=== PATIENT | female | born 1960 | race Caucasian/White ===

== ENCOUNTER 2016-09-08 00:01 | Inpatient (IN) | payer BC, MEDICAID ==
--- NOTE | ~2016-09-08 | EKG ---
PATIENT: VIVIANA JETER UNIT #: [id number] Ventricular Rate: 116 BPM Atrial Rate: 116 BPM P-R Interval: 140 ms QRS Duration: 74 ms Q-T Interval: 344 ms QTC Calculation(Bezet): 478 ms P [place]: 74 degrees Calculated R [place]: 72 degrees Calculated T [place]: 79 degrees Diagnosis Line: Sinus tachycardia Diagnosis Line: Otherwise normal ECG Diagnosis Line: When compared with ECG of 27-JAN-2015 07:09, Diagnosis Line: No significant change was found Diagnosis Line: Confirmed by ASIM CABRERA MD ([id number]) on 09/08/2016 Diagnosis Line: 8:31:49 PM INTERPRETING MD: DEBORAH REDD
--- NOTE | ~2016-09-08 | HP ---
Unit #: [id number] #: [id number] Patient: VIVIANA JETER [id number] [address] [place], [place] [address] [id number] MR#: [id number] NAME: VIVIANA JETER ROOM: Age: 55 Sex: F Admission Date: 09/08/2016 : 1960 Attending Physician: Caden Sutherland M.D. Primary Care Physician: No Primary Care Physician HISTORY AND PHYSICAL CHIEF COMPLAINT Altered mental status, hypoglycemia, refusal to eat, alcohol abuse with early withdrawal. HISTORY OF PRESENT ILLNESS This 55-year-old female with history of alcohol abuse and paroxysmal atrial fibrillation is admitted for hypoglycemia and refusal to eat. Unfortunately, the left the emergency department and is not yet home, although I tried to call his landline. The patient was brought to this emergency department early this morning for altered mental status. I am told that her initial Accu-Chek was 20. She was placed on D5 half with improvement of her hypoglycemia. Her told the ER physician that she drinks alcohol but does not eat food. In the ER, she was started on D5 half normal saline at 150 mL/hour with improvement of her hypoglycemia, given a rally pack and Zofran. She was given a food tray but has refused to eat. She is awake and alert. She will nod and shake her head to questions but will not speak to me. Apparently, she is unhappy with her for bringing her here. In the ER, however, she has become more tachycardiac and is thought to be in alcohol withdrawal. Her initial alcohol level was 126. Again, my database is poor as the left, the patient will only nod and shake her head to answers. PAST MEDICAL HISTORY 1. Admission 01/2015 for alcohol abuse, aspiration pneumonia and AFib with RVR. 2. Arthritis. 3. Anxiety and depression. 4. Neuropathy. 5. x3. 6. BTL. 7. Foot surgery. SOCIAL HISTORY The patient lives with her , smokes tobacco, drinks an unknown amount of alcohol. FAMILY HISTORY Hypertension. ALLERGIES Indocin and tetracycline. HOME MEDICATIONS Unit #: [id number] #: [id number] Patient: VIVIANA JETER Neurontin unknown dose. REVIEW OF SYSTEMS Impossible to obtain as the patient refuses to answer questions. PHYSICAL EXAMINATION GENERAL APPEARANCE: A 55-year-old cachetic female currently in no acute distress. VITAL SIGNS: Temperature 98.8. Pulse 131. Respirations 21. Blood pressure 143/105. O2 saturation 99% on room air. HEENT: Eyes: PERRLA. Extraocular muscles are intact. Pharynx is benign. NECK: Supple without adenopathy or thyromegaly. CHEST: Clear. CARDIAC: Tachy S1, S2 without murmur. ABDOMEN: Bowel sounds are present. No hepatosplenomegaly, tenderness or masses. EXTREMITIES: Without clubbing, cyanosis or edema. NEUROLOGIC: The patient is awake, alert. She nods and shakes her head appropriately but will not answer questions. She has equal strength throughout but is weak on exam. Poor effort on exam. DIAGNOSTIC STUDIES LABORATORY: Hematocrit 55, MCV 109.5, WBC count 10.4, platelet count 150. Cardiac markers are negative. Glucose 196 on D5 half at 150 mL/hour. AST 277, ALT 80, alkaline phosphatase 161. Alcohol level 126. Urinalysis positive for glucose only. IMAGING: Chest x-ray negative. CARDIOVASCULAR: EKG: Sinus tachycardia, rate 116. ASSESSMENT 1. Hypoglycemia. Apparently, the patient drinks alcohol and is not eating. She is cachetic. She presents with altered mental status which is now improved. 2. Alcohol abuse now with possible withdrawal. The patient is somewhat tachycardiac. 3. History of paroxysmal atrial fibrillation. 4. 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 5. Cachexia. 6. Tobacco abuse. 7. Metabolic acidosis secondary to alcohol and starvation ketosis. 8. Poor database. The patient will nod her head yes and shake her head no but is unhappy and will not answer questions. Her left. 9. Elevated MCV which may be related to alcohol. PLAN 1. Vitamins and benzodiazepines. 2. H2 blockers and Zofran. 3. Better history when returns. 4. Obtain TSH, hepatitis profile, B12, folic acid level, urine tox screen, ammonia level. 5. Check hemoglobin A1C and monitor Accu-Cheks. 6. May need Psychiatry to see if the patient refuses to eat. We will keep on IV fluids with dextrose for now. Dictated by Unit #: [id number] #: [id number] Patient: VIVIANA JETER M.D. AML/joe TD: 09/08/2016 06:06 JOB #: [id number] HISTORY AND PHYSICAL Page 1 of 1 X Soraida Wen MD HISTORY AND PHYSICAL
--- NOTE | ~2016-09-08 | CR72 ---
[facility] A Service of [facility] RADIOLOGY TEXT RESULTS PATIENT: VVIIANA JETER LOCATION: [facility] : 64 UNIT #: [id number] AGE: [address]: Stephanie Borges MD SEX: F ORDER DR: [id number] [place], [place] [address] [id number] E MR#: [id number] Acc #: [id number] NAME: VIVIANA JETER : 1960 SEX: F STUDY DATE/TIME: 09/08/2016 1:15 UNIT: JARVIS ROOM: STUDY DESCRIPTION: CR Chest Single View Portable Attending Physician: Caden Sutherland M.D. Ordering Physician: Senthil Pagan M.D. Primary Care Physician: Primary Care Physician No MEDICAL IMAGING REPORT This report is preliminary unless electronic signature is present EXAM Portable chest INDICATION Shortness of air. Hypoglycemia today. PROCEDURE Frontal view chest. COMPARISON 01/27/2015 FINDINGS Heart size is normal. No dense consolidation, pleural fluid or pneumothorax. IMPRESSION No active process. Dictated by... Nimesh Dunbar M.D. THIS IS AN ELECTRONICALLY VERIFIED REPORT Nimesh Dunbar M.D. at 09/08/2016 10:27 PM EED/ljd TD: 09/08/2016 02:53 JOB #: [id number] MEDICAL IMAGING REPORT [facility] A Service of [facility] RADIOLOGY TEXT RESULTS PATIENT: VIVIANA JETER LOCATION: : 64 UNIT #: [id number] AGE: [address]: Stephanie Borges MD SEX: F ORDER DR: Page 1 of 1 COPY
--- NOTE | ~2016-09-08 | DS ---
Unit #: [id number] #: [id number] Patient: VIVIANA JETER [id number] [address] [address] [id number] I MR#: [id number] NAME: VIVIANA JETER ROOM: 218 Age: 55 Sex: F Admission Date: 09/08/2016 : 1960 Discharge Date: 09/14/2016 Attending Physician: Stephanie Borges M.D. Primary Care Physician: Kelsie Primary Care Physician DISCHARGE SUMMARY ADDENDUM Please see previous discharge summary dictated from September 11, 2016 for details of initial part of hospital stay. Afterwards upon [facility] to [facility], [facility] stated that the patient was not appropriate for their care. Therefore, they were unwilling to accept and patient was kept here in the hospital on med/surg floor. Subsequently, Cymbalta as well as Remeron were initiated. Her CIWA protocol was discontinued. P.o. medications were administrated on a p.r.n. basis. Patient has been since tolerating diet well, has been ambulatory with physical therapy and has been cleared from their service for discharge home. She has been extensively counseled and [facility], and from a medical standpoint, she is clinically stable for discharge. Overall, patient's long-term prognosis is guarded secondary to her ongoing alcohol abuse. FINAL DISCHARGE DIAGNOSES Please see above. FINAL DISCHARGE MEDICATIONS 1. Cymbalta 30 mg p.o. daily. 2. Remeron 15 mg p.o. nightly. 3. Lopressor 25 mg p.o. b.i.d. 4. Pepcid 20 mg p.o. b.i.d. 5. Synthroid 50 mcg p.o. daily. DISCHARGE CONDITION Stable. DISCHARGE DISPOSITION Home. Dictated by... Stephanie Borges M.D. Unit #: [id number] #: [id number] Patient: VIVIANA JETER ISN/aury TD: 09/15/2016 09:12 JOB #: [id number] DISCHARGE SUMMARY Page 1 of 1 X Stephanie Borges MD DISCHARGE SUMMARY
--- NOTE | ~2016-09-08 | FU ---
[facility] Nutrition Therapy DATE: 09/12/16 Patient: VIVIANA JETER Physician: LASHELL Address: [address] Room/Bed: [address] [place] [address], Zip: [place] [address] Admit Date: 09/08/16 Date of : [birth year] Height: 5 9 Weight: 112 51 NUTRITION MONITORING/FOLLOW-UP: Reason: Nutrition follow up and consult RE: See pt in the AM 09/12 Anthropometrics: Ht: 5'9" Adm wt: 50 kg BMI: 16.5 Wt 09/12: 51 kg Labs: Creat 0.5 Alb 3.2 Accuchecks 133 Meds: Remeron, thiamine HCl, synthroid, zofran, pepcid, lopressor I&O's: 840/8, last BM 09/11 Skin: Bruising BUE Intact abrasion RFA Edema: none noted Estimated Nutrition Needs: 1631-2513 kcals (30-35 kcals/kg) 50-65 grams protein (1.0-1.3 grams/kg) Diet: Regular Assessment: Chart reviewed, events noted. RD was consulted to see the pt this AM. Please note, RD is following this patient for low BMI. Please refer to initial assessment from 09/10/16. RD attempted to see the pt this AM, and she was being transfered to . Per RN report and information in the chart, the pt was refusing to eat, and MD wrote to place DHT if the pt continued to refuse to eat. MD wrote order today to cancel DHT for now, as the pt seems to be eating. RD spoke with the pt this afternoon at bedside. Pt reports that she was eating and drinking her Ensure shakes yesterday, however, she said she has not had anything to eat today. Pt seemed unsure about her nutritional intake, and would not provide any details about her intake to RD. RD stressed the importance of adequate nutritional intake, and the pt did agree to drinking her Ensure supplements. RD provided explanation of how to order food and pt nodded her head in understanding. RN reports that the pt consumed ~50% of her breakfast this morning. Nutrition diagnosis remains with updated evidence. Dx: Inadequate nutrient intake RT current condition, AMS AEB pt refusing to eat- IN PROGRESS/ RESOLVING New Dx: Inadequate nutrient intake RT AMS AEB pt previously refusing to eat, 50% intake of [facility] Nutrition Therapy DATE: 09/12/16 Patient: VIVIANA JETER Physician: LASHELL Address: [address] Room/Bed: [address] [place] [address], Zip: [place] [address] Admit Date: 09/08/16 Date of : [birth year] Height: 5 9 Weight: 112 51 breakfast today. Intervention: 1. Regular diet 2. Ensure QID Monitoring, Evaluation and Goals: 1. Oral intake; >50% of meals- NOT MET/ IN PROGRESS 2. Prevent ena/ macro nutrient deficiencies- IN PROGRESS 3. Weight; prevent weight loss, promote gradual weight gain- IN PROGRESS NEW GOALS (IN ADDITION TO ABOVE): 1. Labs; monitor blood glucose levels Recommendations: 1. Continue regular diet as tolerated. 2. Encourage adequate PO intake and assist patient with ordering meals as needed. 3. Continue Ensure (strawberry) QID. 4. If pt refuses PO intake, consider placing a DHT and starting enteral nutrition with Jevity 1.5 @ 20 mL/hr. Increase by 10 mL q 8 hrs as tolerated to goal of 45 mL/hr. This would provide: 1620 kcals/ 69 grams protein/ 821 mL free H20 Status: Pt is at moderate nutritional risk. RD will continue to follow. Respectfully, ANNIKA AGUILAR RD, LD Food and Nutritional Services [facility] cc: client file
--- NOTE | ~2016-09-08 | A ---
[facility] Nutrition Therapy DATE: 09/10/16 Patient: VIVIANA JETER Physician: LASHELL Address: [address] Room/Bed: [address] [place] [address], Zip: [place] [address] Admit Date: 09/08/16 Date of : [birth year] Height: 5 9 Weight: 112 51 NUTRITIONAL ASSESSMENT: REASON: LOW BMI (16.5), CONSULT PATIENT ADMITTED FOR HYPOGLYCEMIA, AMS, ETOH ABUSE WITH WITHDRAWAL, REFUSAL TO EAT, METABOLIC ACIDOSIS PMH: ARTHRITIS, ANXIETY, DEPRESSION, A-FIB, NEUROPATHY Anthropometrics: HT: 69", WT: 110#, BMI: 16.5 Labs: 09/10/16- K: 3.3, GLU: 96, CREA: 0.3, CA: 8.0, AST: 161, ALT: 63, HGBA1C: 4.7 Meds: MVI +MINERALS, DETOX PROTOCOL, SYNTHROID, NACL I/O & Bowel function: 1000/7, LBM 09/06/16 Skin Integrity: INTACT, NO EDEMA NOTED Estimated Nutrition Needs: INCREASED 2' REFUSAL TO EAT, LOW BMI Assessment: PATIENT IS A 55 Y/O FEMALE ADMITTED FOR HYPOGLYCEMIA, AMS, ETOH ABUSE WITH WITHDRAWAL, REFUSAL TO EAT, AND METABOLIC ACIDOSIS. PATIENT CURRENTLY LIVES WITH HER . SHE IS A DAILY SMOKER, DRINKS ETOH DAILY AND HAS A HX OF ILLICIT SUBSTANCE ABUSE. THE PATIENT HAS CONFUSION NOTED AT TIMES, BUT SHE WILL REFUSE TO ANSWER QUESTIONS FREQUENTLY. PATIENT WILL NOD AND SHAKE HER HEAD TO YES/NO QUESTIONS. PATIENT CURRENTLY HAS AN OLOP EVALUATION ORDERED AND NURSING REPORTED SHE HAS A HX OF CHEMICAL DEPENDENCY TREATMENT. PATIENT IS STILL REFUSING TO CONSUME ANYTHING BY MOUTH. DURING VISIT, THE PATIENT WOULD ONLY NOD TO YES/NO QUESTIONS BUT WAS WILLING TO HAVE ENSURE SENT ON HER TRAY. PATIENT'S WAS AT BEDSIDE BUT HE WAS UNABLE TO ANSWER ANY QUESTIONS RELATING TO PATIENT'S WEIGHT. Dx: INADEQUATE NUTRIENT INTAKE R/T CURRENT CONDITION, AMS AEB REFUSAL TO EAT Intervention: REGULAR DIET, SUPPLEMENTS, MEDS/FLUIDS PER MD, OLOP EVALUATION Monitoring, Evaluation and Goals: 1. ADEQUATE PO INTAKES >50% 0F MEALS 2. PREVENT, CORRECT MICRO/MACRO NUTRIENT DEFICIENCIES 3. WEIGHT; PROMOTE A STEADY WEIGHT GAIN TOWARDS A HEALTHY BMI OF 19-25, PREVENT FURTHER WEIGHT LOSS [facility] Nutrition Therapy DATE: 09/10/16 Patient: VIVIANA JETER Physician: LASHELL Address: [address] Room/Bed: [address] [place] [address], Zip: [place] [address] Admit Date: 09/08/16 Date of : [birth year] Height: 5 9 Weight: 112 51 MONITOR: LABS, WEIGHT, I/Os Recommendations: 1. CONTINUE REGULAR DIET TOLERATED. SEND ENSURE TID WITH MEALS TO PROMOTE ADEQUATE KCAL AND PROTEIN INTAKES 2. ENCOURAGE ADEQUATE PO AND FLUID INTAKES 3. RECOMMEND POSSIBLY ADDING AN APPETITE STIMULANT TO PATIENT'S CURRENT MEDICATION REGIMEN D/T PATIENT'S REFUSAL TO EAT 4. CONSULT RD FURTHER IF ENTERAL NUTRITION RECOMMENDATIONS ARE NECESSARY RD TO F/U PER PROTOCOL AND PRN R/T PATIENT SEVERELY COMPROMISED Respectfully, TAYLOR GONZALES, RD, LD Food and Nutritional Services [facility] cc: client file
--- NOTE | ~2016-09-08 | CO ---
Unit #: [id number] #: [id number] Patient: VIVIANA JETER [id number] [address] [place], [place] [address] [id number] I MR#: [id number] NAME: VIVIANA JETER. ROOM: 325 Age: 55 Sex: F Admission Date: 09/08/2016 : 1960 Attending Physician: Stephanie Borges M.D. Consultation Date: 09/08/2016 CONSULTATION REPORT REASON FOR CONSULTATION Hypoglycemia and abnormal thyroid function test. HISTORY OF PRESENT ILLNESS This is a 55-year-old female with history of the alcohol abuse and paroxysmal atrial fibrillation, who has been admitted for the change in mental status and refusal to eat. She has a history of heavy alcohol use. In the ER, she was found to be hypoglycemic with Accu-Chek was in 20s, treated at the ER and started on IV fluids with D5 half-normal saline. On her labs, she was found to have the abnormal thyroid function test with low TSH and free T4 was low. I have been asked to see the patient for further management. REVIEW OF SYSTEMS Unable to obtain anything from the patient. She is unable to give any. REVIEW OF SYSTEMS See HPI. PAST MEDICAL HISTORY See HPI. SOCIAL HISTORY Lives with her . Smokes tobacco and drinks unknown amount of alcohol. History of previous admissions with alcohol abuse. FAMILY HISTORY Not pertinent. ALLERGIES Tetracycline and indomethacin. HOME MEDICATIONS Unknown. PHYSICAL EXAMINATION GENERAL: She is looking comfortable, in no acute respiratory distress. VITAL SIGNS: Temperature is 100, pulse is 111, blood pressure 139/90. HEENT: EOMI. Pupils are equally reactive to light. NECK: Supple. No thyromegaly noted. CHEST: Good air entry. CVS: Regular rhythm. ABDOMEN: Soft and nontender. Bowel sounds positive. EXTREMITIES: No edema. Ulcers noted. Unit #: [id number] #: [id number] Patient: VIVIANA JETER DIAGNOSTIC STUDIES LABORATORY RESULTS: On her labs; CO2 is 18, sodium 137, potassium 4.6, chloride 107, magnesium is low 1.6. TSH is 0.25. Free T4 is 0.44. Lactic acid 3.9. ASSESSMENT 1. Hypoglycemia, which could be combination of either due to the adrenal insufficiency or hypopituitarism. 2. Heavy alcohol abuse. 3. Hypoglycemia. 4. Abnormal thyroid function test with low TSH and low free T4 indicating central hypothyroidism cannot exclude euthyroid sick syndrome. PLAN We will check the ACTH stimulation test. Start dexamethasone 2 mg IV with a one dose now. Check ACTH stimulation test and start levothyroxine 50 mcg tomorrow morning. Continue to follow the patient for further management. Dictated by... Amaya Vizcaino/francisco j TD: 09/09/2016 00:39 JOB #: [id number] CONSULTATION REPORT Page 1 of 1 X Ev Jon MD X CONSULTATION REPORT
--- NOTE | ~2016-09-08 | DS ---
Unit #: [id number] #: [id number] Patient: VIVIANA JETER [id number] [address] [place], [place] [address] [id number] I MR#: [id number] NAME: VIVIANA JETER ROOM: 218 Age: 55 Sex: F Admission Date: 09/08/2016 : 1960 Discharge Date: 09/11/2016 Attending Physician: Stephanie Borges M.D. Primary Care Physician: No Primary Care Physician DISCHARGE SUMMARY REASON FOR ADMISSION Altered mental status, hypoglycemia, patient refusing to eat, alcohol abuse. HISTORY OF PRESENT ILLNESS/HOSPITAL COURSE The patient is a 55-year-old female well known to our service with a longstanding history of alcohol abuse, prior medical conditions including atrial fibrillation, who was admitted secondary to refusal to eat as well as persistent hypoglycemia. Please refer to H and P for complete details. The patient was subsequently placed on telemetry floor. CIWA protocol was initiated. Patient at peak score scored a 6 and received Ativan IV x1. Otherwise, she had no overt evidence of any DTs. She was placed initially on scheduled Librium which was transitioned into p.r.n. Librium. Appropriate laboratory studies were conducted including an ammonia level which came back normal. Urine tox screen was negative. Patient's hemoglobin A1c was noted to be 4.7%. HIV screening was done that was negative. Patient did have hypokalemia which was appropriately repleted. Today at time of discharge, her potassium level is 3.1 and will be repleted prior to discharge. She does have a prior history of questionable Cortisol and/or adrenal insufficiency and we had placed a consultation to Dr. Jon who felt as though it was not likely to be adrenal insufficiency but he did question if patient had possible euthyroid sick syndrome. Appropriate laboratory studies per his service were ordered. They are currently pending an ACTH stem test as well as Cortisol and T4 level. This can be followed as an outpatient. Patient currently is medically stable. [facility] will [facility] asked [facility] evaluate the patient secondary to her refusal to eat as well as underlying and likely major depressive disorder and ongoing alcohol abuse. FINAL DISCHARGE DIAGNOSES 1. Alcohol abuse. 2. Major depressive disorder with associated refusal to eat. 3. Paroxysmal atrial fibrillation on no chronic anticoagulation. 4. Cachexia. 5. Failure to thrive, body mass index 16. Unit #: [id number] #: [id number] Patient: VIVIANA JETER 6. Tobacco abuse. 7. Severe protein calorie malnutrition. 8. 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 Followup as an outpatient recommended. 9. Hypothyroidism. DISCHARGE MEDICATIONS 1. Librium 25 mg p.o. q.8 p.r.n. 2. Pepcid 20 mg p.o. b.i.d. 3. Synthroid 50 mcg p.o. daily. 4. Thiamine 100 mg p.o. daily. DISCHARGE CONDITION Stable. DISCHARGE DISPOSITION [facility]. Dictated by... Amaya Montelongo/aury TD: 09/13/2016 16:09 JOB #: [id number] DISCHARGE SUMMARY Page 1 of 1 X Stephanie Borges MD X DISCHARGE SUMMARY
[~2016-09-08 00:01] MED LIST: ALBUTEROL17 G1 IH; AUGMENTIN875 M1 PO; CENTRUM PO; FAMOTIDINE PO; KETOPROFEN PO; LOPRESSOR PO; LORTAB 5/500 TA1 TA2 PO; NEURONTIN600 MG PO; PHENERGAN12.5 MG PO; PREDNISONE PO; ROBAXIN500 MG PO; THERA-M CAPLET1 EAC1 PO; VIBRAMYCIN100 M1 PO; VICODIN 5/500 T1 TAB PO; VOLTAREN75 MG PO
[2016-09-08 01:01] LABS: BASOPHIL% 0.1 % (0-2.5); HEMOGLOBIN 17.8 gm/dL (12.0-16.0); LYMPHOCYTE# 0.4 X10e3 (1.0-3.5); LYMPHOCYTE% 3.5 % (17.0-45.0); MEAN CELL VOLUME 109.5 FL (83-96); MEAN CORPUSCULAR HEMOGLOBIN 35.4 PG (28-34); MEAN CORPUSCULAR HGB CONC 32.3 g/dL (30-36); MONOCYTE# 1.4 X10e3 (0-1.0); MONOCYTE% 13.5 % (3.0-12.0); NEUTROPHIL# 8.6 X10e3 (1.5-7.1); NEUTROPHIL% 82.9 % (40-75); PLATELET COUNT 150 X10e3 (140-420); RED BLOOD COUNT 5.02 X10e (3.90-5.30); RED CELL DISTRIBUTION WIDTH 13.3 % (11.0-15.5); WHITE BLOOD COUNT 10.4 X10e3 (4.0-10.5)
[2016-09-08 01:03] LABS: DIFF IND YES
[2016-09-08 01:26] LABS: PLATELET ESTIMATE DECREASED (NORMAL); STOMATOCYTE PRESENT
[2016-09-08 01:30] LABS: ALBUMIN SERUM 3.8 g/dL (3.5-5.0); BILIRUBIN, DIRECT 0.2 mg/dL (0.0-0.2); BILIRUBIN,TOTAL 1.2 mg/dL (0.2-2.0); BUN/CREATININE RATIO 16.66; CALCIUM SERUM 8.3 mg/dL (8.4-10.2); CREATININE SERUM 0.9 mg/dL (0.6-1.4); POTASSIUM 3.9 mmol/L (3.5-5.1); PROTEIN TOTAL SERUM 7.2 g/dL (6.0-8.3)
[2016-09-08 01:40] LABS: POC - CKMB <1.0 ng/mL (0.0-7.9); POC - TROPONIN <0.05 ng/mL (<=0.05)
[2016-09-08 04:18] LABS: URINE SOURCE CLEAN CATCH
[2016-09-08 04:21] LABS: URINE APPEARANCE CLEAR; URINE BILIRUBIN NEG (NEG); URINE BLOOD NEG (NEG); URINE COLOR YELLOW; URINE GLUCOSE 250 MG/DL (NEG); URINE KETONE 3+ (NEG); URINE LEUKOCYTE ESTERASE NEG (NEG); URINE NITRATE NEG (NEG); URINE PROTEIN NEG (NEG); URINE SPECIFIC GRAVITY 1.015 (1.003-1.035); URINE UROBILINOGEN 0.2 MG/DL (NEG)
[2016-09-08 04:25] LABS: CULTURE INDICATED? NO
[2016-09-08 06:58] LABS: BASOPHIL% 0.4 % (0-2.5); EOSINOPHIL% 0.1 % (0.0-7.0); HEMATOCRIT 51.2 % (35.0-45.0); HEMOGLOBIN 16.7 gm/dL (12.0-16.0); LYMPHOCYTE# 0.4 X10e3 (1.0-3.5); MEAN CELL VOLUME 108.8 FL (83-96); MEAN CORPUSCULAR HEMOGLOBIN 35.5 PG (28-34); MEAN CORPUSCULAR HGB CONC 32.6 g/dL (30-36); MEAN PLATELET VOLUME 8.9 FL (6.5-11.5); MONOCYTE# 0.4 X10e3 (0-1.0); MONOCYTE% 4.5 % (3.0-12.0); PLATELET COUNT 131 X10e3 (140-420); RED BLOOD COUNT 4.71 X10e (3.90-5.30); RED CELL DISTRIBUTION WIDTH 13.5 % (11.0-15.5); WHITE BLOOD COUNT 8.8 X10e3 (4.0-10.5)
[2016-09-08 06:59] LABS: DIFF IND NO
[2016-09-08 07:22] LABS: AMPHETAMINE NEG (NEG); BARBITURATES NEG (NEG); BENZODIAZEPINES NEG (NEG); COCAINE NEG (NEG); MARIJUANA NEG (NEG); OPIATES NEG (NEG); TRICYCLIC ANTIDEPRESSANTS NEG (NEG); U METHADONE NEG (NEG)
[2016-09-08 07:25] LABS: ALBUMIN SERUM 3.2 g/dL (3.5-5.0); BILIRUBIN,TOTAL 1.1 mg/dL (0.2-2.0); BUN/CREATININE RATIO 17.77; CALCIUM SERUM 7.9 mg/dL (8.4-10.2); CREATININE SERUM 0.9 mg/dL (0.6-1.4); POTASSIUM 4.6 mmol/L (3.5-5.1); PROTEIN TOTAL SERUM 6.2 g/dL (6.0-8.3)
[2016-09-08 07:32] LABS: THYROID STIMULATING HORMONE 0.25 uIU/ml (0.34-5.60)
[2016-09-08 07:39] LABS: FREE THYROXIN (T4) 0.44 ng/dL (0.58-1.64)
[2016-09-08] MEDS ORDERED: NEURONTIN PO (15:29)
[2016-09-09 06:54] LABS: CALCIUM SERUM 8.4 mg/dL (8.4-10.2); CREATININE SERUM 0.6 mg/dL (0.6-1.4); GLOM FILT RATE Estimated 104.1 mL/min (>60); MAGNESIUM 1.8 mg/dL (1.6-3.0)
[2016-09-09 07:02] LABS: HEMATOCRIT 45.2 % (35.0-45.0); MEAN CELL VOLUME 109.8 FL (83-96); MEAN CORPUSCULAR HEMOGLOBIN 35.5 PG (28-34); MEAN CORPUSCULAR HGB CONC 32.3 g/dL (30-36); MEAN PLATELET VOLUME 9.7 FL (6.5-11.5); RED BLOOD COUNT 4.11 X10e (3.90-5.30); RED CELL DISTRIBUTION WIDTH 13.6 % (11.0-15.5); WHITE BLOOD COUNT 8.6 X10e3 (4.0-10.5)
[2016-09-09 07:39] LABS: HEMOGLOBIN 14.6 gm/dL (12.0-16.0)
[2016-09-10 05:57] LABS: BUN/CREATININE RATIO 43.33; CREATININE SERUM 0.3 mg/dL (0.6-1.4); GLOM FILT RATE Estimated 130.8 mL/min (>60); MAGNESIUM 1.6 mg/dL (1.6-3.0); POTASSIUM 3.3 mmol/L (3.5-5.1)
[2016-09-10 07:43] LABS: HEMATOCRIT 41.6 % (35.0-45.0); HEMOGLOBIN 13.8 gm/dL (12.0-16.0); MEAN CORPUSCULAR HEMOGLOBIN 35.3 PG (28-34); MEAN CORPUSCULAR HGB CONC 33.3 g/dL (30-36); MEAN PLATELET VOLUME 9.5 FL (6.5-11.5); RED BLOOD COUNT 3.92 X10e (3.90-5.30); RED CELL DISTRIBUTION WIDTH 13.1 % (11.0-15.5); WHITE BLOOD COUNT 7.6 X10e3 (4.0-10.5)
[2016-09-10 07:44] LABS: MEAN CELL VOLUME 106.3 FL (83-96)
[2016-09-10 12:58] LABS: HA AB IGM (HEPPAN) Nonreactive (()); HB CORE AB IGM (HEPPAN) Nonreactive (Nonreactive); HB S AG (HEPPAN) Nonreactive (Nonreactive); HEP C AB (HEPPAN) Nonreactive (Nonreactive); HEP C AB SIGNAL TO CUTOFF 0.02 ratio (<1.00)
[2016-09-11 06:53] LABS: HEMATOCRIT 44.3 % (35.0-45.0); HEMOGLOBIN 14.9 gm/dL (12.0-16.0); MEAN CELL VOLUME 105.3 FL (83-96); MEAN CORPUSCULAR HEMOGLOBIN 35.5 PG (28-34); MEAN CORPUSCULAR HGB CONC 33.7 g/dL (30-36); MEAN PLATELET VOLUME 9.5 FL (6.5-11.5); RED BLOOD COUNT 4.21 X10e (3.90-5.30); RED CELL DISTRIBUTION WIDTH 13.1 % (11.0-15.5); WHITE BLOOD COUNT 7.9 X10e3 (4.0-10.5)
[2016-09-11 06:54] LABS: ALBUMIN SERUM 2.8 g/dL (3.5-5.0); BILIRUBIN,TOTAL 1.2 mg/dL (0.2-2.0); CALCIUM SERUM 8.2 mg/dL (8.4-10.2); CREATININE SERUM 0.4 mg/dL (0.6-1.4); GLOM FILT RATE Estimated 118.9 mL/min (>60); MAGNESIUM 1.8 mg/dL (1.6-3.0); POTASSIUM 3.1 mmol/L (3.5-5.1); PROTEIN TOTAL SERUM 5.5 g/dL (6.0-8.3)
[2016-09-12 10:12] LABS: HEMATOCRIT 48.2 % (35.0-45.0); HEMOGLOBIN 16.2 gm/dL (12.0-16.0); MEAN CELL VOLUME 105.2 FL (83-96); MEAN CORPUSCULAR HEMOGLOBIN 35.4 PG (28-34); MEAN CORPUSCULAR HGB CONC 33.6 g/dL (30-36); MEAN PLATELET VOLUME 9.6 FL (6.5-11.5); RED BLOOD COUNT 4.58 X10e (3.90-5.30); RED CELL DISTRIBUTION WIDTH 12.9 % (11.0-15.5); WHITE BLOOD COUNT 6.9 X10e3 (4.0-10.5)
[2016-09-12 10:15] LABS: INR 0.9; PROTHROMBIN TIME (PATIENT) 10.2 SECONDS (10.0-11.7)
[2016-09-12 10:31] LABS: ALBUMIN SERUM 3.2 g/dL (3.5-5.0); CALCIUM SERUM 8.7 mg/dL (8.4-10.2); CREATININE SERUM 0.5 mg/dL (0.6-1.4); GLOM FILT RATE Estimated 110.5 mL/min (>60); POTASSIUM 3.5 mmol/L (3.5-5.1); PROTEIN TOTAL SERUM 6.3 g/dL (6.0-8.3)
[2016-09-14] MEDS ORDERED: CYMBALTA30 M1 PO (10:37)
[2016-09-14] MEDS ORDERED: METOPROLOL TART25 MG PO (10:38)
[2016-09-14] MEDS ORDERED: REMERON15 MG PO (10:38)
[2016-09-14] MEDS ORDERED: FAMOTIDINE20 M1 PO (10:39)
[2016-09-14] MEDS ORDERED: SYNTHROID0.05 MG PO (10:39)
== END 2016-09-14 12:03 | disposition home or self-care (01) | DRG 896 ==
LOC: CED 00:01 → CEDOF 06:00 → C2A 06:00 → C3A PCU 06:00 → CED 06:00 → C2A 06:00 → CED 06:09 → CEDOF 06:09 → C3A PCU 12:11 → C2A 09-12 12:19
PROVIDERS: Emergency Medicine; Family Medicine; Internal Medicine
DX: F10.239 Alcohol dependence with withdrawal, unspecified (principal); E43 Unspecified severe protein-calorie malnutrition; R64 Cachexia; E87.2 Acidosis; I48.0 Paroxysmal atrial fibrillation; Z68.1 Body mass index [BMI] 19.9 or less, adult; F32.9 Major depressive disorder, single episode, unspecified; Y90.6 Blood alcohol level of 120-199 mg/100 ml; E87.6 Hypokalemia; R62.7 Adult failure to thrive; E03.9 Hypothyroidism, unspecified; F17.210 Nicotine dependence, cigarettes, uncomplicated; E16.2 Hypoglycemia, unspecified; E83.39 Other disorders of phosphorus metabolism
CPT/HCPCS: 36415; 71010; 80048; 80053; 80074; 80076; 80307; 81003; 82140; 82533; 82553; 82607; 82746; 82947; 83036; 83735; 84439; 84443; 84484; 84703; 85025; 85027; 85610; 87806; 93005; 94760; 96361; 96374; 96376; 97110; 97116; 97163; 97166; 97530; 97535; 99285; G0480; J0360; J0833; J1100; J2405; J3411; J3475; J7042